=== PATIENT | female | born 1985 | race Hispanic/Latino ===

== ENCOUNTER 2022-01-13 23:50 | Day surgery (SDC) | payer OTHER, SELFPAY ==
[2022-01-14 00:16] VITALS: BMI 30.5
[2022-01-14] MEDS ORDERED: hydrALAZINE 20 MG/ML VIAL SLOW IVP PRN (01:04)
== END 2022-01-14 02:55 | disposition home or self-care (01) ==
LOC: CSHLD/OP 23:50
PROVIDERS: ATTEND Obstetrics & Gynecology
DX: O47.1 False labor at or after 37 completed weeks of gestation (principal); O09.523 Supervision of elderly multigravida, third trimester; O24.415 Gestational diabetes mellitus in pregnancy, controlled by oral hypoglycemic drugs; O09.33 Supervision of pregnancy with insufficient antenatal care, third trimester; O09.43 Supervision of pregnancy with grand multiparity, third trimester; Z3A.38 38 weeks gestation of pregnancy

== ENCOUNTER 2022-01-17 15:22 | Day surgery (SDC) | payer OTHER ==
[2022-01-17 16:35] VITALS: BMI 29.2
[2022-01-17] MEDS ORDERED: hydrALAZINE 20 MG/ML VIAL SLOW IVP PRN (17:29)
== END 2022-01-17 19:45 | disposition home or self-care (01) ==
LOC: CSHLD/OP 15:22
PROVIDERS: ATTEND Obstetrics & Gynecology
DX: O47.1 False labor at or after 37 completed weeks of gestation (principal); O09.523 Supervision of elderly multigravida, third trimester; O09.43 Supervision of pregnancy with grand multiparity, third trimester; O24.113 Pre-existing type 2 diabetes mellitus, in pregnancy, third trimester; E11.9 Type 2 diabetes mellitus without complications; O99.013 Anemia complicating pregnancy, third trimester; Z3A.38 38 weeks gestation of pregnancy; Z86.16 Personal history of COVID-19; Z79.84 Long term (current) use of oral hypoglycemic drugs; Z79.899 Other long term (current) drug therapy

== ENCOUNTER 2022-01-21 05:43 | Inpatient (IN) | payer MEDICAID, OTHER, SELFPAY ==
[2022-01-21] MEDS ORDERED: Diphenoxylate HCl/Atropine Tablet PO PRN (06:12)
[2022-01-21] MEDS ORDERED: Methylergonovine 0.2 MG/ML VIAL IM PRN (06:12)
[2022-01-21] MEDS ORDERED: Ibuprofen 800 MG TAB PO PRN (06:12)
[2022-01-21] MEDS ORDERED: hydrALAZINE 20 MG/ML VIAL SLOW IVP PRN (06:12)
[2022-01-21] MEDS ORDERED: Promethazine HCl 25 MG/ML VIAL IM PRN ×2 (06:12→11:25)
[2022-01-21] MEDS ORDERED: Misoprostol 200 MCG TAB PR PRN (06:12)
[2022-01-21] MEDS ORDERED: Acetaminophen 500 MG TAB PO PRN (06:12)
[2022-01-21] MEDS ORDERED: Carboprost 250 MCG/ML AMP IM PRN (06:12)
[2022-01-21] MEDS ORDERED: Lidocaine 1% (PF) 30 ML VIAL SC PRN (06:12)
[2022-01-21] MEDS ORDERED: Ondansetron PF 4 MG/2 ML Vial IVP PRN ×2 (06:12→11:25)
[2022-01-21] MEDS ORDERED: NS w/ Oxytocin 30 units 500 ML IV SCH ×2 (06:15)
[2022-01-21] MEDS ORDERED: Butorphanol Tartrate 1 MG/ML VIAL SLOW IVP SCH (07:30)
[2022-01-21] MEDS: Lactated Ringer's 1,000 ML IV SCH ×3 (07:30→23:38)
[2022-01-21 07:46] LABS: Hemoglobin 11.1 g/dL (12.0-15.5); Mean Corpuscular HGB CONC 32.2 g/dL (32.0-36.0); Mean Corpuscular Hemoglobin 27.5 pg (27.0-33.0); Mean Corpuscular Volume 85.6 fl (81.6-98.3); Mean Platelet Volume 11.8 fl (7.4-10.4); Platelet Count 189 10x3/uL (150-450); RBC Distribution Width 15.1 % (11.5-14.5); Red Blood Cell (RBC) Count 4.03 10x6/uL (3.90-5.03); White Blood Cell (WBC) Count 5.4 10x3/uL (3.5-10.5)
[2022-01-21 07:53] VITALS: BMI 30.7
[2022-01-21] MEDS ORDERED: Bupivacaine 0.25% HCL 30 ML VIAL ONE (08:00)
[2022-01-21 08:18] LABS: Hep B Surf Ag Non-Reactive S/CO (NonReactive)
[2022-01-21 08:19] LABS: Syphilis Antibody Nonreactive (Nonreactive); Syphilis Antibody Index 0.03 S/CO (<1.00 Non-Reactive)
[2022-01-21 08:21] LABS: HBSAg Index 0.19 S/CO (0-0.99)
[2022-01-21] MEDS ORDERED: Misoprostol 100 MCG TAB VAG SCH (09:00)
[2022-01-21 09:37] LABS: SARS-CoV-2 NAA Rapid Test Not Detected (NotDetected)
[2022-01-21] MEDS ORDERED: Dextrose 5% in Water 1,000 ML IV PRN (10:42)
[2022-01-21] MEDS ORDERED: Dextrose 50% Abboject 50 ML SYRINGE SLOW IVP PRN (10:42)
[2022-01-21] MEDS ORDERED: HumaLOG 300 UNITS/3 ML VIAL SC PRN (10:42)
[2022-01-21] MEDS ORDERED: Fentanyl 2 mcg/Bup 0.1% Cadd 100 ML ONE (10:42)
[2022-01-21] MEDS ORDERED: Naloxone HCl 0.4 mg/ml Vial IVP PRN ×2 (11:25)
[2022-01-21] MEDS ORDERED: diphenhydrAMINE 50 MG/ML VIAL IVP PRN (11:25)
[2022-01-21] MEDS ORDERED: Lactated Ringer's 500 ML IV PRN (11:25)
[2022-01-21] MEDS ORDERED: Hydrocerin (Eucerin) Cream 120 gm Jar TOP PRN (11:25)
[2022-01-21] MEDS ORDERED: ePHEDrine Sulfate 50 MG/10 ML VIAL SLOW IVP PRN (11:25)
[2022-01-21] MEDS ORDERED: Fentanyl 2 mcg/Bupivacaine 0.1% Cassette 100 ML EPIDURAL SCH (11:30)
[2022-01-21] MEDS ORDERED: Communication Order-Pharmacy FS SCH (11:30)
[2022-01-21] MEDS ORDERED: Misoprostol 200 MCG TAB ONE (20:21)
[2022-01-22] MEDS ORDERED: Benzocaine-Menthol 82.5 ML CAN TOP PRN (00:30)
[2022-01-22] MEDS ORDERED: Measles/Mumps/Rubella 10 MCG/0.5 ML VIAL SC ONE (00:30)
[2022-01-22] MEDS ORDERED: Lanolin Ointment 7 GM TUBE TOP PRN (00:30)
[2022-01-22] MEDS ORDERED: Milk Of Magnesia 30 ML UDCUP PO PRN (00:30)
[2022-01-22] MEDS ORDERED: Boostrix 0.5 ML (Tdap) VIAL IM ONE (00:30)
[2022-01-22] MEDS ORDERED: Bisacodyl 10 MG SUPP PR PRN (00:30)
[2022-01-22] MEDS ORDERED: Preparation H Ointment 28 GM TUBE PR PRN (00:30)
[2022-01-22] MEDS: Ibuprofen 800 MG TAB PO SCH ×3 (05:44→21:33)
[2022-01-22 06:03] LABS: #Monocytes 0.6 10x3/uL (0.0-1.1); #Neutrophils 7.9 10x3/uL (1.5-8.4); %Basophils 0.1 % (0.0-2.0); %Eosinophils 0.3 % (0.0-6.0); %Lymphocytes 9.3 % (18.0-47.0); %Monocytes 6.2 % (0.0-10.0); %Neutrophils 83.8 % (40.0-75.0); Hemoglobin 10.9 g/dL (12.0-15.5); Mean Corpuscular HGB CONC 32.8 g/dL (32.0-36.0); Mean Corpuscular Hemoglobin 27.5 pg (27.0-33.0); Mean Corpuscular Volume 83.8 fl (81.6-98.3); Platelet Count 182 10x3/uL (150-450); Red Blood Cell (RBC) Count 3.96 10x6/uL (3.90-5.03); White Blood Cell (WBC) Count 9.5 10x3/uL (3.5-10.5)
[2022-01-22] MEDS: Ferrous Sulfate 325 MG TAB PO SCH ×2 (07:31→14:37)
[2022-01-22] MEDS: Prenatal Vitamin 1 TAB PO SCH (08:41)
[2022-01-22] MEDS: Acetaminophen 325 MG TAB PO PRN ×2 (08:41→16:50)
[2022-01-22] MEDS: Docusate 100 MG CAP PO SCH ×2 (08:41→21:33)
[2022-01-23] MEDS: Ibuprofen 800 MG TAB PO SCH ×2 (05:48→14:03)
[2022-01-23] MEDS: Ferrous Sulfate 325 MG TAB PO SCH (08:18)
[2022-01-23] MEDS: Prenatal Vitamin 1 TAB PO SCH (08:58)
[2022-01-23] MEDS: Docusate 100 MG CAP PO SCH (08:58)
[2022-01-23 11:36] VITALS: BP 98/56; TEMP 98.2
== END 2022-01-23 16:40 | disposition home or self-care (01) | DRG 807 ==
LOC: CSHLD 05:43 → CSHPP 01-22 02:40
PROVIDERS: ADMIT Family Medicine; ATTEND Family Medicine
PROC: 3E0P7VZ Introduction of Hormone into Female Reproductive, Via Natural or Artificial Opening (ICD-10-PCS; 2022-01-21)
PROC: 3E033VJ Introduction of Other Hormone into Peripheral Vein, Percutaneous Approach (ICD-10-PCS; 2022-01-21)
PROC: 10H07YZ Insertion of Other Device into Products of Conception, Via Natural or Artificial Opening (ICD-10-PCS; 2022-01-21)
PROC: 10E0XZZ Delivery of Products of Conception, External Approach (ICD-10-PCS; principal; 2022-01-22)
DX: O24.425 Gestational diabetes mellitus in childbirth, controlled by oral hypoglycemic drugs (principal); Z37.0 Single live birth; O42.02 Full-term premature rupture of membranes, onset of labor within 24 hours of rupture; O76 Abnormality in fetal heart rate and rhythm complicating labor and delivery; O99.02 Anemia complicating childbirth; D64.9 Anemia, unspecified; O99.345 Other mental disorders complicating the puerperium; F53.0 Postpartum depression; Z20.822 Contact with and (suspected) exposure to COVID-19; Z3A.39 39 weeks gestation of pregnancy; Z90.49 Acquired absence of other specified parts of digestive tract; Z86.16 Personal history of COVID-19; Z79.84 Long term (current) use of oral hypoglycemic drugs; Z79.899 Other long term (current) drug therapy; J45.909 Unspecified asthma, uncomplicated; O99.52 Diseases of the respiratory system complicating childbirth
CPT/HCPCS: 36415; 36416; 51702; 85025; 85027; 86780; 86850; 86900; 86901; 87340; J1815; J2405; J2590; J7120; S0020; U0002

== ENCOUNTER 2023-10-27 13:33 | Emergency (ER) | payer SELFPAY | END 2023-10-27 14:19 | disposition home or self-care (01) | LOC: CSHERS 13:33 | DX: N64.4 Mastodynia (principal); Z55.0 Illiteracy and low-level literacy | CPT/HCPCS: 99283 ==

== ENCOUNTER 2024-06-24 12:11 | Day surgery (SDC) | payer OTHER ==
[2024-06-24 12:21] VITALS: BMI 26.4
[2024-06-24] MEDS ORDERED: hydrALAZINE 20 MG/ML VIAL SLOW IVP PRN (14:13)
[2024-06-24 16:34] LABS: Hemoglobin 10.2 g/dL (12.0-15.5); Mean Corpuscular HGB CONC 32.9 g/dL (32.0-36.0); Mean Corpuscular Hemoglobin 28.8 pg (27.0-33.0); Mean Corpuscular Volume 87.6 fL (81.6-98.3); Mean Platelet Volume 10.8 fL (7.4-10.4); Platelet Count 212 10x3/uL (150-450); RBC Distribution Width 12.7 % (11.5-14.5); Red Blood Cell (RBC) Count 3.54 10x6/uL (3.90-5.03); White Blood Cell (WBC) Count 7.4 10x3/uL (3.5-10.5)
[2024-06-24 16:54] LABS: Bilirubin Neg (Negative); Blood, Urine Negative (Negative); Glucose, Urine (Dipstick) Normal (Negative); Ketone, Urine 5 mg/dL (Negative); Leukocyte 100 (Negative); Nitrite Negative (Negative); Protein, Urine (Dipstick) Negative (Neg-Trace); Specific Gravity, Urine 1.005 (1.005-1.030); Urobilinogen Normal mg/dL (Less than 2)
[2024-06-24 16:59] LABS: Clarity Hazy (Clear)
[2024-06-24 17:28] LABS: HBsAg Index 0.27 S/CO (0-0.99); HIV (1/2) Antibody/Antigen Non-Reactive (NonReactive); HIV 1/2 INDEX 0.12 S/CO (<1.00); Hep B Surf Ag - L&D Non-Reactive S/CO (NonReactive)
[2024-06-24 17:29] LABS: Syphilis Antibody Nonreactive (Nonreactive); Syphilis Antibody Index 0.04 S/CO (<1.00 Non-Reactive)
[2024-06-24 18:16] LABS: CAUTI Indications for Culture Pregnancy; RBC/HPF 0-3 HPF (0-3); Transitional Epithelial 0-3 HPF (None Seen)
[2024-06-24 18:17] LABS: Bacteria/HPF 2+ HPF (None Seen); Mucous/LPF 1+ LPF (<2+)
[2024-06-24 18:18] LABS: Urine Culture Reflex No No; Urine Culture Reflex Yes Yes
[2024-06-25 00:49] LABS: Hep C IgG Ab NONREACTIVE S/CO (NonReactive)
[2024-06-25 12:09] LABS: Chlamydia by PCR, Vaginal Swab Not Detected (NotDetected); GC by PCR, Vaginal Swab Not Detected (NotDetected); Tric.vaginalis PCR,Vaginal Sw Not Detected (NotDetected)
== END 2024-06-24 18:32 | disposition home or self-care (01) ==
LOC: CSHLD/OP 12:11
PROVIDERS: ATTEND Obstetrics & Gynecology
DX: O47.02 False labor before 37 completed weeks of gestation, second trimester (principal); O09.522 Supervision of elderly multigravida, second trimester; O09.42 Supervision of pregnancy with grand multiparity, second trimester; Z90.49 Acquired absence of other specified parts of digestive tract; Z64.0 Problems related to unwanted pregnancy; Z3A.27 27 weeks gestation of pregnancy
CPT/HCPCS: 36415; 76815; 81001; 85027; 86762; 86780; 86803; 86850; 86900; 86901; 87086; 87340; 87389; 87491; 87591; 87661; 96360; 99283

== ENCOUNTER 2024-07-06 14:40 | Day surgery (SDC) | payer SELFPAY ==
[2024-07-06 15:52] VITALS: BMI 26.4
[2024-07-06] MEDS ORDERED: hydrALAZINE 20 MG/ML VIAL SLOW IVP PRN (15:58)
[2024-07-06] MEDS: Acetaminophen 500 MG TAB PO SCH (16:53)
== END 2024-07-06 18:30 | disposition other institution (70) ==
LOC: CSHLD/OP 14:40
PROVIDERS: ATTEND Obstetrics & Gynecology
DX: O9A.213 Injury, poisoning and certain other consequences of external causes complicating pregnancy, third trimester (principal); O47.03 False labor before 37 completed weeks of gestation, third trimester; O09.43 Supervision of pregnancy with grand multiparity, third trimester; O09.523 Supervision of elderly multigravida, third trimester; O99.891 Other specified diseases and conditions complicating pregnancy; R45.851 Suicidal ideations; Y04.0XXA Assault by unarmed brawl or fight, initial encounter; Z3A.28 28 weeks gestation of pregnancy
CPT/HCPCS: 99283

== ENCOUNTER 2024-07-06 18:32 | Emergency (ER) | payer SELFPAY ==
[2024-07-06 19:55] LABS: Bilirubin Neg (Negative); Blood, Urine Negative (Negative); Clarity Clear (Clear); Glucose, Urine (Dipstick) Normal (Negative); Ketone, Urine Negative (Negative); Leukocyte Negative (Negative); Nitrite Negative (Negative); Protein, Urine (Dipstick) 15 mg/dl (Neg-Trace); Urobilinogen Normal mg/dL (Less than 2)
[2024-07-06 19:59] LABS: Amphetamine Not Detected (NotDetected); Barbiturates Screen Not Detected (NotDetected); Benzodiazepine Screen Not Detected (NotDetected); Cocaine Metabolite Screen Not Detected (NotDetected); Methadone Not Detected (NotDetected); Methamphetamine Not Detected (NotDetected); Opiate Screen Not Detected (NotDetected); Oxycodone Screen Not Detected (NotDetected); Phencyclidine (PCP) Not Detected (NotDetected); THC/Cannabinoid Screen Not Detected (NotDetected); Tricyclic Screen Not Detected (NotDetected)
[2024-07-06 20:24] LABS: Bacteria/HPF 1+ HPF (None Seen); RBC/HPF 0-3 HPF (0-3); Squamous Epithelial 0-3 HPF (0-3); WBC/HPF 0-3 HPF (0-3)
[2024-07-06 20:49] LABS: CAUTI Indications for Culture Pelvic or flank pain
[2024-07-06 21:02] LABS: BHCG - Serum POSITIVE (NEGATIVE); Pregs Control Background? CLEAR/WHITE (CLR/WHITE); Pregs Control Bar Appear? YES (CONTROL BAR)
[2024-07-06 21:05] LABS: Acetaminophen Less than 10 mcg/mL (Less than 10); Alcohol Less than 10.0 mg/dL (Less than 10); Salicylate Less than 8.0 mg/dL (Less than 8.0)
[2024-07-06 21:07] LABS: ALT (SGPT) 13 U/L (8-55); AST (SGOT) 15 U/L (5-34); Albumin 2.8 g/dL (3.5-5.0); Alkaline Phosphatase 76 U/L (40-110); Anion Gap 14 mmol/L (10-20); BUN (Urea Nitrogen) 8 mg/dL (7.0-18.7); Bilirubin, Total 0.4 mg/dL (0.2-1.2); Calc. Creatinine Clearance 0 mL/min (70-130); Calcium 8.9 mg/dL (7.8-10.44); Carbon Dioxide 23 mmol/L (22-29); Chloride 105 mmol/L (98-107); Estimated GFR 120; Globulin 3.3 g/dL (2.4-3.5); Glucose 103 mg/dL (70-105); Potassium 3.8 mmol/L (3.5-5.1); Protein, Total 6.1 g/dL (6.0-8.3); Sodium 138 mmol/L (136-145)
[2024-07-06 21:13] LABS: #Basophils 0.01 10x3/uL (0.0-0.2); #Eosinophils 0.25 10x3/uL (0.0-0.5); #Monocytes 0.48 10x3/uL (0.0-1.1); #Neutrophils 4.29 10x3/uL (1.5-8.4); %Basophils 0.1 % (0.0-2.0); %Eosinophils 3.7 % (0.0-6.0); %Lymphocytes 25.3 % (18.0-47.0); %Monocytes 7.1 % (0.0-10.0); %Neutrophils 63.4 % (40.0-75.0); Hematocrit 31.2 % (34.9-44.5); Hemoglobin 10.3 g/dL (12.0-15.5); Mean Corpuscular Hemoglobin 28.9 pg (27.0-33.0); Mean Corpuscular Volume 87.6 fL (81.6-98.3); Mean Platelet Volume 11.3 fL (7.4-10.4); Platelet Count 235 10x3/uL (150-450); RBC Distribution Width 12.4 % (11.5-14.5); Red Blood Cell (RBC) Count 3.56 10x6/uL (3.90-5.03); White Blood Cell (WBC) Count 6.8 10x3/uL (3.5-10.5)
[2024-07-06] MEDS ORDERED: Ondansetron ODT 4 MG TAB ONE (21:38)
[2024-07-06] MEDS ORDERED: Morphine 2 MG/ML VIAL ONE (21:42)
[2024-07-06] MEDS ORDERED: Ondansetron PF 4 MG/2 ML Vial ONE (21:42)
== END 2024-07-06 22:32 | disposition home or self-care (01) ==
LOC: CSHERS 18:32
DX: O9A.312 Physical abuse complicating pregnancy, second trimester (principal); S09.90XA Unspecified injury of head, initial encounter; Z3A.27 27 weeks gestation of pregnancy
CPT/HCPCS: 36415; 80053; 80306; 80307; 81001; 84703; 85025; 93005; 99285; J2272; J2405; Q0162

== ENCOUNTER 2024-09-01 16:05 | Day surgery (SDC) | payer SELFPAY ==
[2024-09-01] MEDS ORDERED: hydrALAZINE 20 MG/ML VIAL SLOW IVP PRN (16:26)
== END 2024-09-01 17:25 | disposition home or self-care (01) ==
LOC: CSHLD/OP 16:05
PROVIDERS: ATTEND Obstetrics & Gynecology
DX: O47.03 False labor before 37 completed weeks of gestation, third trimester (principal); O09.43 Supervision of pregnancy with grand multiparity, third trimester; O09.523 Supervision of elderly multigravida, third trimester; O09.33 Supervision of pregnancy with insufficient antenatal care, third trimester; O99.013 Anemia complicating pregnancy, third trimester; O99.413 Diseases of the circulatory system complicating pregnancy, third trimester; I35.0 Nonrheumatic aortic (valve) stenosis; I08.2 Rheumatic disorders of both aortic and tricuspid valves; I27.20 Pulmonary hypertension, unspecified; O66.0 Obstructed labor due to shoulder dystocia; Z3A.36 36 weeks gestation of pregnancy
CPT/HCPCS: 99282

== ENCOUNTER 2024-09-06 23:06 | Inpatient (IN) | payer MEDICAID, SELFPAY ==
[2024-09-06] MEDS ORDERED: hydrALAZINE 20 MG/ML VIAL SLOW IVP PRN (23:32)
[2024-09-06] MEDS ORDERED: Methylergonovine 0.2 MG/ML VIAL IM PRN (23:33)
[2024-09-06] MEDS ORDERED: Misoprostol 200 MCG TAB PR PRN (23:33)
[2024-09-06] MEDS ORDERED: Docusate 100 MG CAP PO PRN (23:33)
[2024-09-06] MEDS ORDERED: Acetaminophen 500 MG TAB PO PRN (23:33)
[2024-09-06] MEDS ORDERED: Carboprost 250 MCG/ML AMP IM PRN (23:33)
[2024-09-06] MEDS ORDERED: Promethazine HCl 25 MG/ML VIAL IM PRN (23:33)
[2024-09-06] MEDS ORDERED: Tranexamic Acid 1,000 MG/10 ML VIAL IVP PRN (23:33)
[2024-09-06] MEDS ORDERED: Ibuprofen 800 MG TAB PO PRN (23:45)
[2024-09-06] MEDS ORDERED: Penicillin G Potassium 5 MILL.UNITS in Sodium Chloride 0.9% 100 ML IVPB SCH (23:45)
[2024-09-06] MEDS ORDERED: Lactated Ringer's 1,000 ML IV SCH (23:45)
[2024-09-06] MEDS ORDERED: Lidocaine 1% (PF) 30 ML VIAL SC PRN (23:45)
[2024-09-06 23:59] VITALS: BMI 27.6
[2024-09-07] MEDS ORDERED: Naloxone HCl 0.4 mg/ml Vial IVP PRN ×2 (00:07)
[2024-09-07] MEDS ORDERED: Promethazine HCl 25 MG/ML VIAL IM PRN (00:07)
[2024-09-07] MEDS ORDERED: Moisturizing Cream (Eucerin) 113 GM JAR TOP PRN (00:07)
[2024-09-07] MEDS ORDERED: Lactated Ringer's 500 ML IV PRN (00:07)
[2024-09-07] MEDS ORDERED: ePHEDrine Sulfate 50 MG/10 ML VIAL SLOW IVP PRN (00:07)
[2024-09-07] MEDS ORDERED: diphenhydrAMINE 50 MG/ML VIAL IVP PRN (00:07)
[2024-09-07] MEDS ORDERED: Ondansetron PF 4 MG/2 ML Vial IVP PRN (00:07)
[2024-09-07] MEDS ORDERED: Communication Order-Pharmacy FS SCH (00:15)
[2024-09-07 00:16] LABS: Hematocrit 33.8 % (34.9-44.5); Mean Corpuscular HGB CONC 32.5 g/dL (32.0-36.0); Mean Corpuscular Hemoglobin 27.2 pg (27.0-33.0); Mean Corpuscular Volume 83.7 fL (81.6-98.3); Mean Platelet Volume 12.2 fL (7.4-10.4); Platelet Count 194 10x3/uL (150-450); RBC Distribution Width 13.8 % (11.5-14.5); Red Blood Cell (RBC) Count 4.04 10x6/uL (3.90-5.03); White Blood Cell (WBC) Count 6.2 10x3/uL (3.5-10.5)
[2024-09-07] MEDS: fentaNYL 2 mcg/Ropivacaine 0.2% Epidural 100 ML CADD EPIDURAL SCH (00:33)
[2024-09-07 00:37] LABS: Syphilis Antibody Nonreactive (Nonreactive); Syphilis Antibody Index 0.04 S/CO (<1.00 Non-Reactive)
[2024-09-07 00:39] LABS: HBsAg Index 0.18 S/CO (0-0.99); Hep B Surf Ag - L&D Non-Reactive S/CO (NonReactive)
[2024-09-07] MEDS: Ondansetron PF 4 MG/2 ML Vial IVP PRN (01:22)
[2024-09-07] MEDS ORDERED: Penicillin G 2.5 MILL.units 2.5 MILL.UNITS in Premix 1 BAG IVPB SCH (03:45)
[2024-09-07] MEDS: Oxytocin 30 units/NS 500 ML 500 ML IV SCH (06:25)
[2024-09-07] MEDS ORDERED: ePHEDrine Sulfate 50 MG/10 ML VIAL ONE (09:00)
[2024-09-07] MEDS ORDERED: Bupivacaine/Epinephrine 0.25% 30 ML VIAL ONE (09:00)
[2024-09-07] MEDS ORDERED: Benzocaine-Menthol 82.5 ML CAN TOP PRN (11:07)
[2024-09-07] MEDS ORDERED: hydrALAZINE 20 MG/ML VIAL SLOW IVP PRN (11:07)
[2024-09-07] MEDS ORDERED: Preparation H Ointment 28 GM TUBE PR PRN (11:07)
[2024-09-07] MEDS ORDERED: Bisacodyl 10 MG SUPP PR PRN (11:07)
[2024-09-07] MEDS ORDERED: Milk Of Magnesia 30 ML UDCUP PO PRN (11:07)
[2024-09-07] MEDS: Carboprost 250 MCG/ML AMP ONE (13:50)
[2024-09-07] MEDS: fentaNYL/Ropivacaine Epidural 100 ML ONE (13:50)
[2024-09-07] MEDS: Tranexamic Acid 1,000 MG/10 ML VIAL ONE (13:50)
[2024-09-07] MEDS: Oxytocin 30 units/NS 500 ML 500 ML ONE (13:50)
[2024-09-07] MEDS: Misoprostol 200 MCG TAB ONE (13:50)
[2024-09-07] MEDS: Methylergonovine 0.2 MG/ML VIAL ONE (13:50)
[2024-09-07] MEDS: Erythromycin Base 0.5% Oint 1 GM TUBE ONE (13:51)
[2024-09-07] MEDS: Boostrix 0.5 ML (Tdap) VIAL (>/=7 yrs of age) IM ONE (13:51)
[2024-09-07] MEDS: Phytonadione Neonatal 1 MG/0.5 ML AMP ONE (13:51)
[2024-09-07] MEDS: Ibuprofen 800 MG TAB PO SCH (14:46)
[2024-09-07] MEDS: Ferrous Sulfate 325 MG TAB PO SCH (15:44)
[2024-09-07] MEDS: Docusate 100 MG CAP PO SCH (21:43)
[2024-09-07] MEDS: Acetaminophen 325 MG TAB PO PRN (23:57)
[2024-09-08] MEDS: Prenatal Vitamin 1 TAB PO SCH (08:03)
[2024-09-09 08:06] VITALS: BP 108/53; TEMP 97.6
== END 2024-09-09 13:30 | disposition home or self-care (01) | DRG 807 ==
LOC: CSHLD/OP 23:06 → CSHLD 23:55 → CSHPP 09-07 13:58
PROVIDERS: ADMIT Emergency Medicine; ATTEND Emergency Medicine
PROC: 10E0XZZ Delivery of Products of Conception, External Approach (ICD-10-PCS; principal; 2024-09-07)
PROC: 10H07YZ Insertion of Other Device into Products of Conception, Via Natural or Artificial Opening (ICD-10-PCS; 2024-09-07)
DX: O42.02 Full-term premature rupture of membranes, onset of labor within 24 hours of rupture (principal); Z37.0 Single live birth; Z3A.37 37 weeks gestation of pregnancy; O99.02 Anemia complicating childbirth; Z90.49 Acquired absence of other specified parts of digestive tract
CPT/HCPCS: 36416; 51702; 85027; 86780; 86850; 86900; 86901; 87340; 99285; J2210; J2405; J2590; J3490

== ENCOUNTER 2025-08-18 01:02 | Emergency (ER) | payer MEDICAID ==
[2025-08-18 01:33] LABS: Glucose, Urine (Dipstick) Normal (Negative); Leukocyte Negative (Negative); Protein, Urine (Dipstick) Negative (Neg-Trace); Specific Gravity, Urine 1.010 (1.005-1.030)
[2025-08-18 01:37] LABS: Pregnancy Test - Urine (BHCG) POSITIVE (Negative); Pregu Control Background? CLEAR/WHITE (CLR/WHITE); Pregu Control Bar Appear? YES (CONTROL BAR)
[2025-08-18 01:37] LABS: #Basophils Less than 0.03 10x3/uL (0.0-0.2); #Eosinophils 0.26 10x3/uL (0.0-0.5); #Monocytes 0.54 10x3/uL (0.0-1.1); #Neutrophils 4.02 10x3/uL (1.5-8.4); %Basophils 0.1 % (0.0-2.0); %Eosinophils 3.6 % (0.0-6.0); %Lymphocytes 32.4 % (18.0-47.0); %Monocytes 7.5 % (0.0-10.0); %Neutrophils 56.3 % (40.0-75.0); Hematocrit 31.7 % (34.9-44.5); Hemoglobin 10.9 g/dL (12.0-15.5); Mean Corpuscular Hemoglobin 27.3 pg (27.0-33.0); Mean Corpuscular Volume 79.3 fL (81.6-98.3); Platelet Count 263 10x3/uL (150-450); Red Blood Cell (RBC) Count 4.00 10x6/uL (3.90-5.03); White Blood Cell (WBC) Count 7.16 10x3/uL (3.5-10.5)
[2025-08-18 01:45] LABS: Bacteria/HPF Rare-Few HPF (None Seen); CAUTI Indications for Culture Pelvic or flank pain; RBC/HPF None Seen HPF (0-3); WBC/HPF None Seen HPF (0-3)
[2025-08-18 01:46] LABS: BHCG - Serum POSITIVE (NEGATIVE); Pregs Control Background? CLEAR/WHITE (CLR/WHITE); Pregs Control Bar Appear? YES (CONTROL BAR)
[2025-08-18 01:46] LABS: Urine Culture Reflex No No
[2025-08-18 01:52] LABS: ALT (SGPT) 8 U/L (Less than 34); AST (SGOT) 13 U/L (11-34); Albumin 3.3 g/dL (3.1-4.5); Alkaline Phosphatase 67 U/L (40-110); Anion Gap 13 mmol/L (10-20); BUN (Urea Nitrogen) 11 mg/dL (7.0-18.7); Bilirubin, Total 0.2 mg/dL (0.3-1.2); Calc. Creatinine Clearance 0 mL/min (70-130); Calcium 9.0 mg/dL (7.8-10.44); Carbon Dioxide 18 mmol/L (22-29); Chloride 108 mmol/L (98-107); Globulin 3.7 g/dL (2.4-3.5); Glucose 100 mg/dL (70-105); Lipase 26 U/L (8-78); Potassium 3.8 mmol/L (3.5-5.1); Sodium 135 mmol/L (136-145)
== END 2025-08-18 04:00 | disposition home or self-care (01) ==
LOC: CSHERS 01:02
DX: O99.891 Other specified diseases and conditions complicating pregnancy (principal); R10.32 Left lower quadrant pain; Z55.6 Problems related to health literacy; Z3A.14 14 weeks gestation of pregnancy
CPT/HCPCS: 76801; 76856; 80053; 81001; 81025; 83690; 84702; 84703; 85025